=== PATIENT | female | born 1990 ===

== ENCOUNTER 2022-03-02 00:06 | Inpatient (IN) | payer OTHER ==
[2022-03-02] VITALS (26 sets, daily range): BP systolic 111–185; BP diastolic 55–101
[~2022-03-02] VITALS: Ht 157.5 cm; Wt 69.4 kg
[2022-03-02 01:22] LABS: HEMATOCRIT 28.4 % (36.0-47.0); MEAN CORPUSCULAR HEMOGLOBIN 24.7 pg (27.0-33.0); MEAN CORPUSCULAR HGB CONC 31.7 g/dl (32.0-36.5); PLATELET COUNT, AUTOMATED 218 10^3/uL (150-450); RED BLOOD COUNT 3.64 10^6/uL (4.00-5.40); WHITE BLOOD COUNT 10.9 10^3/uL (4.0-10.0)
[2022-03-02] MEDS ORDERED: LACTATED RINGER'S 1000 ML IV STA (01:23)
[2022-03-02] MEDS ORDERED: OXYTOCIN INJ 10 UNITS/ML VIAL (J2590) IM PRN (01:25)
[2022-03-02] MEDS ORDERED: TRANEXAMIC ACID INJection 1,000 MG in NS 100 ML IV PRN (01:25)
[2022-03-02] MEDS ORDERED: OXYTOCIN INJ 10 UNITS/ML VIAL (J2590) IV PRN (01:25)
[2022-03-02] MEDS ORDERED: LR 1,000 ML IV SCH (01:25)
[2022-03-02] MEDS ORDERED: LIDOCAINE 1% MDV 20ML VIAL INFIL PRN (01:25)
[2022-03-02] MEDS ORDERED: METHYLERGONOVINE MALEATE 0.2 MG/ML VIAL (J2210) IM PRN (01:25)
[2022-03-02] MEDS ORDERED: OXYTOCIN DRIP 30 UNITS in IV 1 EA IV PRN ×6 (01:25)
[2022-03-02] MEDS ORDERED: CARBOPROST TROMETHAMINE 250 MCG/ML AMP IM PRN (01:25)
[2022-03-02] MEDS ORDERED: FENTANYL 2MCG/ML ROPIVACAINE 0.2% IN 0.9% NACL 100ML IVBAG As Ordered ONE (01:41)
[2022-03-02] MEDS ORDERED: FENTANYL/ROPIVACAINE/NACL BAG 100 ML EPIDURAL SCH (02:20)
[2022-03-02] MEDS ORDERED: LR 500 ML IV PRN (02:20)
[2022-03-02] MEDS ORDERED: ONDANSETRON 4MG 2ML VIAL IV PRN (02:20)
[2022-03-02] MEDS ORDERED: diphenhydrAMINE 50MG/ML VIAL (J1200) IV PRN (02:20)
[2022-03-02] MEDS ORDERED: EPIDURAL/PCA KEYS XX PRN (02:20)
[2022-03-02] MEDS ORDERED: NALOXONE INJ 0.4MG/1ML VIAL (J2310 PER 1MG) IV PRN (02:20)
[2022-03-02] MEDS ORDERED: ePHEDrine SULFATE 25 MG/5 ML(5MG/ML) SYRINGE IVP PRN (02:20)
[2022-03-02] MEDS ORDERED: OXYTOCIN DRIP 30 UNITS in IV 1 EA IV SCH ×2 (05:25→07:50)
[2022-03-02] MEDS ORDERED: RHOGAM 300 MCG (1500 IU) INJ (J2790) IM SCH (07:50)
[2022-03-02] MEDS ORDERED: METHYLERGONOVINE MALEATE 0.2 MG TAB PO PRN (07:50)
[2022-03-02] MEDS ORDERED: MOM 30ML SUSPENSION UDC PO PRN (07:50)
[2022-03-02] MEDS ORDERED: DOCUSATE SODIUM 100MG CAPSULE PO PRN (07:50)
[2022-03-02] MEDS ORDERED: DIBUCAINE 1% OINTMENT 30GM TOP PRN (07:50)
[2022-03-02 07:56] LABS: HEPATITIS B SURFACE ANTIGEN NEGATIVE (NEGATIVE); HIV 1&2 SCREEN CENTAUR NEGATIVE (NEGATIVE)
[2022-03-02] MEDS ORDERED: diphenhydrAMINE 50MG/ML VIAL (J1200) IV ONE (08:45)
[2022-03-02] MEDS: PRENATAL VITAMINS CHEWABLE TABLET PO SCH (09:00)
[2022-03-02] MEDS: IBUPROFEN 800 MG TAB PO PRN (17:10)
[2022-03-02] MEDS: ACETAMINOPHEN 500 MG TAB PO PRN (22:42)
[2022-03-03] MEDS ORDERED: ACET-683 PO (02:38)
[2022-03-03] MEDS ORDERED: COLA100C5 PO (02:38)
[2022-03-03] MEDS ORDERED: IBUP80TA PO (02:38)
[2022-03-03] MEDS: IBUPROFEN 800 MG TAB PO PRN (05:16)
[2022-03-03 06:00] VITALS: BP 118/84
[2022-03-03] MEDS: PRENATAL VITAMINS CHEWABLE TABLET PO SCH (08:15)
[2022-03-03] MEDS: ACETAMINOPHEN 500 MG TAB PO PRN (08:26)
[2022-03-04] MEDS ORDERED: MEASLES,MUMPS,RUBELLA VACCINE INJ (MMR-II) (90707) SC.IMMUN ONE (09:00)
== END 2022-03-03 14:40 | disposition home or self-care (01) | DRG 807 ==
LOC: M LDO 00:06 → M LDI 01:01 → M OBS 09:46
PROVIDERS: ADMIT Obstetrics & Gynecology; ATTEND Obstetrics & Gynecology
PROC: 10E0XZZ Delivery of Products of Conception, External Approach (ICD-10-PCS; principal; 2022-03-02)
PROC: 10907ZC Drainage of Amniotic Fluid, Therapeutic from Products of Conception, Via Natural or Artificial Opening (ICD-10-PCS; 2022-03-02)
DX: O99.02 Anemia complicating childbirth (principal); Z37.0 Single live birth; D64.9 Anemia, unspecified; O69.81X0 Labor and delivery complicated by cord around neck, without compression, not applicable or unspecified; Z3A.40 40 weeks gestation of pregnancy